=== PATIENT | female | born 1965 | race Caucasian/White ===

== ENCOUNTER 2017-09-11 11:43 | Emergency (ER) | payer MEDICAID ==
[~2017-09-11] VITALS: Ht 170.2 cm; Wt 81.5 kg
[2017-09-11] MEDS ORDERED: MECLIZINE CHEWABLE 25 MG TAB ONE (12:47)
[2017-09-11] MEDS ORDERED: ONDANSETRON 2MG/ML, 2ML ONE (12:48)
[2017-09-11] MEDS ORDERED: MECLIZINE CHEWABLE 25 MG TAB PO ONE (13:00)
[2017-09-11] MEDS ORDERED: ONDANSETRON 2MG/ML, 2ML IVPush ONE (13:00)
[2017-09-11] MEDS ORDERED: SODIUM CHLORIDE 0.9% 1,000ML IVBOLUS ONE ×2 (13:00→14:30)
[2017-09-11] MEDS ORDERED: SODIUM CHLORIDE FLUSH 10ML SYR IVF ONE (13:00)
[2017-09-11 13:18] LABS: BASOPHILS # (AUTO) 0.05 x10^3/uL (0-0.1); BASOPHILS % (AUTO) 1 % (0-1); EOSINOPHILS # (AUTO) 0.11 x10^3/uL (0-0.4); EOSINOPHILS % (AUTO) 1 % (1-7); LYMPHOCYTES % (AUTO) 26 % (22-44); MD NO; MEAN CORPUSCULAR HEMOGLOBIN 28.6 pg (27.0-34.8); MEAN CORPUSCULAR HGB CONC 33.5 g/dL (32.4-35.8); MEAN CORPUSCULAR VOLUME 85.2 fL (80-100); MEAN PLATELET VOLUME 7.2 fL (7.4-10.4); MONOCYTES # (AUTO) 0.36 x10^3/uL (0.2-0.8); MONOCYTES % (AUTO) 4 % (2-9); NEUTROPHILS % (AUTO) 68 % (42-75); PLATELET COUNT 384 x10^3/uL (130-400); RED BLOOD COUNT 4.42 x10^6/uL (3.82-5.3); RED CELL DISTRIBUTION WIDTH 14.6 % (9.6-15.2)
[2017-09-11 13:29] LABS: ALANINE AMINOTRANSFERASE 20 U/L (12-78); ALBUMIN 3.3 g/dL (3.4-5.0); ANION GAP 9 mmol/L (5-15); CALCIUM 9.6 mg/dL (8.5-10.1); CHLORIDE 98 mmol/L (98-107); CREATININE 1.47 mg/dL (0.55-1.02)
[2017-09-11 13:31] LABS: ALKALINE PHOSPHATASE 113 U/L (45-117); BILIRUBIN,TOTAL 0.3 mg/dL (0.2-1.0); TOTAL PROTEIN 7.8 g/dL (6.4-8.2)
[2017-09-11 15:35] LABS: ANION GAP 6 mmol/L (5-15); CALCIUM 8.8 mg/dL (8.5-10.1); CHLORIDE 105 mmol/L (98-107); CREATININE 1.16 mg/dL (0.55-1.02)
[2017-09-11 16:35] VITALS: BP 164/81
== END 2017-09-11 16:41 | disposition home or self-care (01) ==
LOC: ED 15:20
DX: H60.11 Cellulitis of right external ear (principal); L03.313 Cellulitis of chest wall; L03.312 Cellulitis of back [any part except buttock and flank]; E11.65 Type 2 diabetes mellitus with hyperglycemia; Z79.4 Long term (current) use of insulin
CPT/HCPCS: 36415; 80048; 80053; 82040; 82962; 85025; 93005; 96361; 96374; 99285; J2405; J7030

== ENCOUNTER 2017-11-25 12:02 | Emergency (ER) | payer MEDICAID ==
[~2017-11-25] VITALS: Ht 170.2 cm; Wt 84.0 kg
[2017-11-25] MEDS ORDERED: HYDROcodone/APAP 5/325 TABLET ONE (12:24)
[2017-11-25] MEDS ORDERED: HYDROcodone/APAP 5/325 TABLET PO ONE (12:30)
[2017-11-25 13:24] VITALS: BP 96/57
== END 2017-11-25 13:26 | disposition home or self-care (01) ==
LOC: ED 13:20
DX: K02.9 Dental caries, unspecified (principal); E11.9 Type 2 diabetes mellitus without complications; Z79.4 Long term (current) use of insulin; Z88.5 Allergy status to narcotic agent; Z88.8 Allergy status to other drugs, medicaments and biological substances
CPT/HCPCS: 99283

== ENCOUNTER 2018-02-07 12:01 | Emergency (ER) | payer MEDICAID ==
[~2018-02-07] VITALS: Ht 170.2 cm; Wt 88.7 kg
[2018-02-07 12:04] VITALS: BP 103/64
[2018-02-07] MEDS ORDERED: HYDROcodone/APAP 5/325 TABLET PO ONE (13:00)
[2018-02-07] MEDS ORDERED: HYDROcodone/APAP 5/325 TABLET ONE (13:01)
[2018-02-07] MEDS ORDERED: PREG25CA PO (13:05)
[2018-02-07] MEDS ORDERED: DULO20CA45 PO (13:05)
[2018-02-07] MEDS ORDERED: HYDR10TA4 PO (13:05)
== END 2018-02-07 13:23 | disposition home or self-care (01) ==
LOC: ED 13:10
DX: K08.89 Other specified disorders of teeth and supporting structures (principal); E11.9 Type 2 diabetes mellitus without complications
CPT/HCPCS: 99283

== ENCOUNTER 2018-04-07 13:09 | Emergency (ER) | payer MEDICAID ==
[~2018-04-07] VITALS: Ht 170.2 cm; Wt 90.0 kg
[~2018-04-07 13:09] MED LIST: DULO20CA45 PO; HYDR10TA4 PO; PREG25CA PO
[2018-04-07 13:21] VITALS: BP 142/85
[2018-04-07 15:23] LABS: BASOPHILS # (AUTO) 0.06 x10^3/uL (0-0.1); BASOPHILS % (AUTO) 1 % (0-1); EOSINOPHILS # (AUTO) 0.32 x10^3/uL (0-0.4); EOSINOPHILS % (AUTO) 4 % (1-7); LYMPHOCYTES # (AUTO) 2.78 x10^3/uL (1-3.4); LYMPHOCYTES % (AUTO) 32 % (22-44); MD NO; MEAN CORPUSCULAR HEMOGLOBIN 28.6 pg (27.0-34.8); MEAN CORPUSCULAR HGB CONC 33.3 g/dL (32.4-35.8); MEAN CORPUSCULAR VOLUME 86.1 fL (80-100); MEAN PLATELET VOLUME 7.5 fL (7.4-10.4); MONOCYTES # (AUTO) 0.49 x10^3/uL (0.2-0.8); MONOCYTES % (AUTO) 6 % (2-9); NEUTROPHILS # (AUTO) 5.12 x10^3/uL (1.8-6.8); NEUTROPHILS % (AUTO) 58 % (42-75); PLATELET COUNT 334 x10^3/uL (130-400); RED CELL DISTRIBUTION WIDTH 13.6 % (9.6-15.2)
[2018-04-07 15:28] LABS: ALBUMIN 3.7 g/dL (3.4-5.0); ANION GAP 3 mmol/L (5-15); CALCIUM 9.4 mg/dL (8.5-10.1); CHLORIDE 101 mmol/L (98-107)
[2018-04-07 15:32] LABS: ALANINE AMINOTRANSFERASE 35 U/L (12-78); ALKALINE PHOSPHATASE 114 U/L (45-117); BILIRUBIN,TOTAL 0.4 mg/dL (0.2-1.0); CREATININE 1.28 mg/dL (0.55-1.02); TOTAL PROTEIN 7.9 g/dL (6.4-8.2)
[2018-04-07 16:30] LABS: MICROSCOPIC AUTO
[2018-04-07 16:36] LABS: CULTURE INDICATED? NO
== END 2018-04-07 17:30 | disposition home or self-care (01) ==
LOC: ED 17:05
DX: J02.8 Acute pharyngitis due to other specified organisms (principal); B97.89 Other viral agents as the cause of diseases classified elsewhere; H60.93 Unspecified otitis externa, bilateral; E11.65 Type 2 diabetes mellitus with hyperglycemia; Z90.710 Acquired absence of both cervix and uterus
CPT/HCPCS: 36415; 70360; 80053; 81001; 85025; 99285

== ENCOUNTER 2018-04-23 11:49 | Emergency (ER) | payer MEDICAID ==
[~2018-04-23] VITALS: Ht 170.2 cm; Wt 89.5 kg
[2018-04-23] MEDS ORDERED: SODIUM CHLORIDE 0.9% 1,000ML IVBOLUS ONE ×2 (13:00→14:30)
[2018-04-23] MEDS ORDERED: SODIUM CHLORIDE FLUSH 10ML SYR IVF ONE (13:00)
[2018-04-23] MEDS ORDERED: KETOROLAC 60 MG/2 ML IVPush ONE (13:00)
[2018-04-23] MEDS ORDERED: INSU100I13 SQ (13:02)
[2018-04-23] MEDS ORDERED: INSU100C SQ-INSULIN (13:03)
[2018-04-23 13:38] LABS: BASOPHILS # (AUTO) 0.03 x10^3/uL (0-0.1); BASOPHILS % (AUTO) 0 % (0-1); EOSINOPHILS # (AUTO) 0.18 x10^3/uL (0-0.4); EOSINOPHILS % (AUTO) 2 % (1-7); LYMPHOCYTES # (AUTO) 2.65 x10^3/uL (1-3.4); LYMPHOCYTES % (AUTO) 30 % (22-44); MD NO; MEAN CORPUSCULAR HEMOGLOBIN 28.5 pg (27.0-34.8); MEAN CORPUSCULAR HGB CONC 33.3 g/dL (32.4-35.8); MEAN CORPUSCULAR VOLUME 85.8 fL (80-100); MEAN PLATELET VOLUME 7.6 fL (7.4-10.4); MONOCYTES # (AUTO) 0.48 x10^3/uL (0.2-0.8); MONOCYTES % (AUTO) 5 % (2-9); NEUTROPHILS # (AUTO) 5.63 x10^3/uL (1.8-6.8); NEUTROPHILS % (AUTO) 63 % (42-75); PLATELET COUNT 371 x10^3/uL (130-400); RED BLOOD COUNT 4.82 x10^6/uL (3.82-5.3); RED CELL DISTRIBUTION WIDTH 13.4 % (9.6-15.2)
[2018-04-23 13:49] LABS: ALBUMIN 3.5 g/dL (3.4-5.0); ANION GAP 9 mmol/L (5-15); CALCIUM 9.4 mg/dL (8.5-10.1); CHLORIDE 104 mmol/L (98-107)
[2018-04-23 13:54] LABS: ALANINE AMINOTRANSFERASE 28 U/L (12-78); ALKALINE PHOSPHATASE 122 U/L (45-117); BILIRUBIN,TOTAL 0.3 mg/dL (0.2-1.0); TOTAL PROTEIN 7.9 g/dL (6.4-8.2)
[2018-04-23 13:58] LABS: TROPONIN I < 0.015 ng/mL (0.000-0.045)
[2018-04-23 14:11] LABS: ACETONE, SERUM Negative (Negative)
[2018-04-23] MEDS ORDERED: DULOXETINE (15:50)
[2018-04-23] MEDS ORDERED: NORTRIPTYLINE (15:51)
[2018-04-23] MEDS ORDERED: LIPITOR (15:52)
[2018-04-23] MEDS ORDERED: BACLOFEN (15:52)
[2018-04-23 16:53] VITALS: BP 112/75
[2018-04-23 17:30] LABS: MICROSCOPIC INDICATED
[2018-04-23 17:31] LABS: CULTURE INDICATED? YES
[2018-04-23 18:30] LABS: AMPHETAMINE SCREEN, URINE Negative (Negative); BARBITURATE SCREEN, URINE Negative (Negative); BENZODIAZEPINE SCREEN, URINE Negative (Negative); CANNABINOID SCREEN, URINE Negative (Negative); COCAINE SCREEN, URINE Negative (Negative); METHADONE SCREEN, URINE Negative (Negative); OPIATE SCREEN, URINE Negative (Negative)
== END 2018-04-23 20:08 | disposition home or self-care (01) ==
LOC: ED 12:45
DX: E11.649 Type 2 diabetes mellitus with hypoglycemia without coma (principal); N18.3 Chronic kidney disease, stage 3 (moderate); K08.89 Other specified disorders of teeth and supporting structures; I12.9 Hypertensive chronic kidney disease with stage 1 through stage 4 chronic kidney disease, or unspecified chronic kidney disease; E11.22 Type 2 diabetes mellitus with diabetic chronic kidney disease; Z79.4 Long term (current) use of insulin; Z90.710 Acquired absence of both cervix and uterus; Z88.5 Allergy status to narcotic agent; Z88.8 Allergy status to other drugs, medicaments and biological substances; R05 Cough; R42 Dizziness and giddiness; R21 Rash and other nonspecific skin eruption; Z79.899 Other long term (current) drug therapy
CPT/HCPCS: 36415; 71045; 80053; 80307; 81001; 82010; 82962; 84484; 85025; 87086; 93005; 96360; 96361; 99285; J7030

== ENCOUNTER 2018-06-05 16:17 | Inpatient (IN) | payer MEDICAID, OTHER ==
[~2018-06-05] VITALS: Ht 170.2 cm; Wt 94.7 kg
[~2018-06-05 16:17] MED LIST changes: +BACLOFEN PO; +DULOXETINE; +INSU100C SQ-INSULIN; +INSU100I13 SQ; +LIPITOR PO; +NORTRIPTYLINE PO
[2018-06-05] MEDS ORDERED: PIPERACILLIN/TAZO/PMX 3.375GM 50 ML ONE (16:54)
[2018-06-05] MEDS ORDERED: SODIUM CHLORIDE 0.9% 1,000ML IVBOLUS ONE (17:00)
[2018-06-05] MEDS ORDERED: SODIUM CHLORIDE FLUSH 10ML SYR IVF ONE (17:00)
[2018-06-05] MEDS ORDERED: PIPERACILLIN/TAZO/PMX 3.375GM 50 ML IVPB ONE (17:00)
[2018-06-05 17:15] LABS: BASOPHILS # (AUTO) 0.02 x10^3/uL (0-0.1); BASOPHILS % (AUTO) 0 % (0-1); EOSINOPHILS # (AUTO) 0.03 x10^3/uL (0-0.4); EOSINOPHILS % (AUTO) 0 % (1-7); LYMPHOCYTES # (AUTO) 1.47 x10^3/uL (1-3.4); LYMPHOCYTES % (AUTO) 17 % (22-44); MD NO; MEAN CORPUSCULAR HEMOGLOBIN 28.2 pg (27.0-34.8); MEAN CORPUSCULAR HGB CONC 33.3 g/dL (32.4-35.8); MEAN CORPUSCULAR VOLUME 84.6 fL (80-100); MEAN PLATELET VOLUME 7.9 fL (7.4-10.4); MONOCYTES # (AUTO) 1.01 x10^3/uL (0.2-0.8); MONOCYTES % (AUTO) 11 % (2-9); NEUTROPHILS # (AUTO) 6.34 x10^3/uL (1.8-6.8); NEUTROPHILS % (AUTO) 71 % (42-75); PLATELET COUNT 267 x10^3/uL (130-400); RED BLOOD COUNT 4.55 x10^6/uL (3.82-5.3); RED CELL DISTRIBUTION WIDTH 14.1 % (9.6-15.2)
[2018-06-05 17:27] LABS: ALANINE AMINOTRANSFERASE 23 U/L (12-78); ALBUMIN 2.8 g/dL (3.4-5.0); ANION GAP 12 mmol/L (5-15); CALCIUM 9.1 mg/dL (8.5-10.1); CHLORIDE 91 mmol/L (98-107); CREATININE 2.04 mg/dL (0.55-1.02)
[2018-06-05 17:29] LABS: ALKALINE PHOSPHATASE 117 U/L (45-117); BILIRUBIN,TOTAL 0.6 mg/dL (0.2-1.0); TOTAL PROTEIN 8.3 g/dL (6.4-8.2)
[2018-06-05 17:50] LABS: PROTHROMBIN TIME 10.3 Seconds (9.6-11.5)
[2018-06-05 18:57] LABS: CULTURE INDICATED? YES; MICROSCOPIC INDICATED
[2018-06-05] MEDS ORDERED: SODIUM CHLORIDE FLUSH 10ML SYR IVF PRN (19:00)
[2018-06-05] MEDS ORDERED: HYDR10TA4 PO (19:13)
[2018-06-05] MEDS ORDERED: MULT-257 PO (19:15)
[2018-06-05] MEDS ORDERED: LORA10TA72 PO (19:15)
[2018-06-05] MEDS ORDERED: BRIM5DRO2 EACHEYE (19:17)
[2018-06-05] MEDS ORDERED: PRED5DRO20 LEFTEYE (19:20)
[2018-06-05] MEDS ORDERED: ONDANSETRON ODT 4 MG PO PRN (20:00)
[2018-06-05] MEDS ORDERED: PHARMACY MAY ADJ FOR RENAL FX MC PRN (20:00)
[2018-06-05 20:35] VITALS: BP 100/61
[2018-06-05] MEDS: SODIUM CHLORIDE 0.9% 1,000 ML IV SCH (20:44)
[2018-06-05] MEDS ORDERED: GLUCAGON 1 MG IM PRN (21:00)
[2018-06-05] MEDS ORDERED: DEXTROSE 4 GM TAB.CHEW PO PRN (21:00)
[2018-06-05] MEDS: SODIUM CHLORIDE FLUSH 10ML SYR IVF SCH (21:00)
[2018-06-05] MEDS ORDERED: DEXTROSE 50%, 50ML SYRINGE IVPush PRN (21:00)
[2018-06-05] MEDS ORDERED: LORATADINE 10 MG TABLET PO SCH (21:00)
[2018-06-05] MEDS ORDERED: ATORVASTATIN 20 MG TABLET PO SCH (21:00)
[2018-06-05] MEDS: hydrOXyzine 10MG TABLET PO SCH (21:38)
[2018-06-05] MEDS: NORTRIPTYLINE 10 MG CAPSULE PO SCH (21:38)
[2018-06-05] MEDS: BACLOFEN 10 MG TABLET PO SCH (21:39)
[2018-06-05 22:06] VITALS: BP 100/61
[2018-06-05] MEDS: HEPARIN 5,000 UNITS/ML, 1ML SQ SCH (22:30)
[2018-06-05] MEDS: PIPERACILLIN/TAZO/PMX 3.375GM 50 ML IV SCH (23:11)
[2018-06-05] MEDS: INSULIN LISPRO 100 UNITS/ML, PEN SQ-INSULIN SCH (23:11)
[2018-06-05] MEDS: INSULIN GLARGINE 100 UNITS/ML, PEN SQ-INSULIN SCH (23:12)
[2018-06-06 00:04] VITALS: BP 89/54
[2018-06-06 02:22] VITALS: BP 112/73
[2018-06-06] MEDS ORDERED: DIPHENHYDRAMINE 25 MG CAPSULE PO ONE (03:00)
[2018-06-06 05:30] VITALS: BP 119/70
[2018-06-06] MEDS: SODIUM CHLORIDE 0.9% 1,000 ML IV SCH ×2 (05:52→20:21)
[2018-06-06] MEDS: PIPERACILLIN/TAZO/PMX 3.375GM 50 ML IV SCH ×2 (05:52→10:52)
[2018-06-06 05:56] LABS: BASOPHILS # (AUTO) 0.03 x10^3/uL (0-0.1); BASOPHILS % (AUTO) 0 % (0-1); EOSINOPHILS # (AUTO) 0.09 x10^3/uL (0-0.4); EOSINOPHILS % (AUTO) 1 % (1-7); LYMPHOCYTES # (AUTO) 1.57 x10^3/uL (1-3.4); LYMPHOCYTES % (AUTO) 21 % (22-44); MD NO; MEAN CORPUSCULAR HEMOGLOBIN 27.9 pg (27.0-34.8); MEAN CORPUSCULAR HGB CONC 33.2 g/dL (32.4-35.8); MEAN CORPUSCULAR VOLUME 84.1 fL (80-100); MEAN PLATELET VOLUME 7.8 fL (7.4-10.4); MONOCYTES % (AUTO) 17 % (2-9); NEUTROPHILS # (AUTO) 4.55 x10^3/uL (1.8-6.8); NEUTROPHILS % (AUTO) 60 % (42-75); PLATELET COUNT 270 x10^3/uL (130-400); RED BLOOD COUNT 4.03 x10^6/uL (3.82-5.3)
[2018-06-06 06:03] LABS: ANION GAP 7 mmol/L (5-15); CHLORIDE 100 mmol/L (98-107); CREATININE 1.85 mg/dL (0.55-1.02)
[2018-06-06] MEDS: HEPARIN 5,000 UNITS/ML, 1ML SQ SCH ×3 (06:18→22:26)
[2018-06-06] MEDS: INSULIN LISPRO 100 UNITS/ML, PEN SQ-INSULIN SCH ×4 (08:17→21:33)
[2018-06-06] MEDS: INSULIN GLARGINE 100 UNITS/ML, PEN SQ-INSULIN SCH ×2 (08:18→21:38)
[2018-06-06] MEDS: hydrOXyzine 10MG TABLET PO SCH ×2 (08:19→20:22)
[2018-06-06] MEDS: BACLOFEN 10 MG TABLET PO SCH ×2 (08:19→20:21)
[2018-06-06] MEDS: MULTIVITAMIN 1 TABLET PO SCH (08:20)
[2018-06-06] MEDS: SODIUM CHLORIDE FLUSH 10ML SYR IVF SCH ×2 (08:24→20:23)
[2018-06-06 10:00] VITALS: BP 91/58
[2018-06-06] MEDS: TIMOLOL OPHTH 0.5%, 5ML EACHEYE SCH (10:42)
[2018-06-06] MEDS: BRIMONIDINE TARTRATE OPHTH 0.15%, 5ML EACHEYE SCH (10:42)
[2018-06-06 13:25] VITALS: BP 120/78
[2018-06-06] MEDS ORDERED: PHARMACY MAY ADJ FOR RENAL FX MC PRN (13:30)
[2018-06-06] MEDS ORDERED: DAPTOMYCIN 530 MG in SODIUM CHLORIDE 0.9% 100 ML IVPB SCH (13:30)
[2018-06-06 15:17] LABS: HCT (SEDRATE) 34.2 % (34.6-47.8)
[2018-06-06] MEDS: CEFTAROLINE 600 MG in SODIUM CHLORIDE 0.9% 100 ML IV SCH (15:49)
[2018-06-06 16:17] LABS: HEMOGLOBIN A1C 13.1 % (4.2-6.3)
[2018-06-06] MEDS: ALBUTEROL SULFATE 2.5 MG/3 ML NPPB SCH (19:32)
[2018-06-06] MEDS: NORTRIPTYLINE 10 MG CAPSULE PO SCH (20:22)
[2018-06-06] MEDS: LORATADINE 10 MG TABLET PO SCH (20:22)
[2018-06-06] MEDS: ATORVASTATIN 20 MG TABLET PO SCH (20:22)
[2018-06-06 20:31] VITALS: BP 125/66
[2018-06-06] MEDS ORDERED: INSULIN GLARGINE 100 UNITS/ML, PEN SQ-INSULIN SCH (21:00)
[2018-06-07] MEDS: CEFTAROLINE 600 MG in SODIUM CHLORIDE 0.9% 100 ML IV SCH ×2 (03:14→15:22)
[2018-06-07 03:20] VITALS: BP 142/62
[2018-06-07 05:57] LABS: BASOPHILS # (AUTO) 0.02 x10^3/uL (0-0.1); BASOPHILS % (AUTO) 0 % (0-1); EOSINOPHILS # (AUTO) 0.13 x10^3/uL (0-0.4); EOSINOPHILS % (AUTO) 2 % (1-7); LYMPHOCYTES # (AUTO) 2.31 x10^3/uL (1-3.4); LYMPHOCYTES % (AUTO) 27 % (22-44); MD NO; MEAN CORPUSCULAR HEMOGLOBIN 27.5 pg (27.0-34.8); MEAN CORPUSCULAR HGB CONC 32.9 g/dL (32.4-35.8); MEAN CORPUSCULAR VOLUME 83.8 fL (80-100); MEAN PLATELET VOLUME 7.9 fL (7.4-10.4); MONOCYTES # (AUTO) 0.76 x10^3/uL (0.2-0.8); MONOCYTES % (AUTO) 9 % (2-9); NEUTROPHILS # (AUTO) 5.33 x10^3/uL (1.8-6.8); NEUTROPHILS % (AUTO) 62 % (42-75); PLATELET COUNT 319 x10^3/uL (130-400); RED BLOOD COUNT 3.87 x10^6/uL (3.82-5.3); RED CELL DISTRIBUTION WIDTH 13.9 % (9.6-15.2)
[2018-06-07 06:00] LABS: CALCIUM 7.9 mg/dL (8.5-10.1); CHLORIDE 106 mmol/L (98-107)
[2018-06-07 06:04] LABS: ANION GAP 7 mmol/L (5-15); CREATININE 1.12 mg/dL (0.55-1.02)
[2018-06-07] MEDS: HEPARIN 5,000 UNITS/ML, 1ML SQ SCH ×3 (06:15→23:19)
[2018-06-07] MEDS: SODIUM CHLORIDE 0.9% 1,000 ML IV SCH ×2 (06:15→17:00)
[2018-06-07] MEDS: ALBUTEROL SULFATE 2.5 MG/3 ML NPPB SCH ×2 (07:50→18:48)
[2018-06-07] MEDS: INSULIN GLARGINE 100 UNITS/ML, PEN SQ-INSULIN SCH ×2 (08:44→21:55)
[2018-06-07] MEDS: TIMOLOL OPHTH 0.5%, 5ML EACHEYE SCH (08:45)
[2018-06-07] MEDS: INSULIN LISPRO 100 UNITS/ML, PEN SQ-INSULIN SCH ×4 (08:45→21:11)
[2018-06-07] MEDS: BRIMONIDINE TARTRATE OPHTH 0.15%, 5ML EACHEYE SCH (08:46)
[2018-06-07] MEDS: LORATADINE 10 MG TABLET PO SCH ×2 (08:46→21:09)
[2018-06-07] MEDS: MULTIVITAMIN 1 TABLET PO SCH (08:46)
[2018-06-07] MEDS: SODIUM CHLORIDE FLUSH 10ML SYR IVF SCH ×2 (08:47→21:55)
[2018-06-07] MEDS: BACLOFEN 10 MG TABLET PO SCH ×2 (08:47→21:10)
[2018-06-07] MEDS: hydrOXyzine 10MG TABLET PO SCH ×2 (08:47→21:09)
[2018-06-07] MEDS ORDERED: INSULIN GLARGINE 100 UNITS/ML, PEN SQ-INSULIN SCH (09:00)
[2018-06-07 09:59] VITALS: BP 149/84
[2018-06-07 13:11] VITALS: BP 142/64
[2018-06-07 19:58] VITALS: BP 162/81
[2018-06-07] MEDS: ATORVASTATIN 20 MG TABLET PO SCH (21:08)
[2018-06-07] MEDS: NORTRIPTYLINE 10 MG CAPSULE PO SCH (21:10)
[2018-06-08 01:24] VITALS: BP 178/82
[2018-06-08 01:56] VITALS: BP 174/83
[2018-06-08] MEDS: hydrALAzine 20 MG/ML, 1ML IV PRN (01:57)
[2018-06-08 03:00] VITALS: BP 164/81
[2018-06-08] MEDS: CEFTAROLINE 600 MG in SODIUM CHLORIDE 0.9% 100 ML IV SCH (03:02)
[2018-06-08 06:41] VITALS: BP 126/67
[2018-06-08] MEDS: ALBUTEROL SULFATE 2.5 MG/3 ML NPPB SCH ×2 (08:05→19:18)
[2018-06-08] MEDS: INSULIN LISPRO 100 UNITS/ML, PEN SQ-INSULIN SCH ×4 (08:57→20:46)
[2018-06-08] MEDS: BRIMONIDINE TARTRATE OPHTH 0.15%, 5ML EACHEYE SCH (08:57)
[2018-06-08] MEDS: TIMOLOL OPHTH 0.5%, 5ML EACHEYE SCH (08:57)
[2018-06-08] MEDS: HEPARIN 5,000 UNITS/ML, 1ML SQ SCH ×2 (08:57→16:32)
[2018-06-08] MEDS: INSULIN GLARGINE 100 UNITS/ML, PEN SQ-INSULIN SCH ×2 (08:58→20:47)
[2018-06-08] MEDS: SODIUM CHLORIDE FLUSH 10ML SYR IVF SCH ×2 (08:58→20:48)
[2018-06-08] MEDS: hydrOXyzine 10MG TABLET PO SCH ×2 (08:58→20:44)
[2018-06-08] MEDS: MULTIVITAMIN 1 TABLET PO SCH (08:58)
[2018-06-08] MEDS: LORATADINE 10 MG TABLET PO SCH ×2 (08:58→20:43)
[2018-06-08] MEDS: BACLOFEN 10 MG TABLET PO SCH ×2 (08:58→20:45)
[2018-06-08 12:12] VITALS: BP 119/69
[2018-06-08] MEDS ORDERED: SODIUM CHLORIDE 0.9% 500 ML IV SCH (13:00)
[2018-06-08 13:01] LABS: MEAN CORPUSCULAR HGB CONC 33.2 g/dL (32.4-35.8); MEAN CORPUSCULAR VOLUME 84.1 fL (80-100); MEAN PLATELET VOLUME 7.6 fL (7.4-10.4); PLATELET COUNT 344 x10^3/uL (130-400); RED BLOOD COUNT 3.57 x10^6/uL (3.82-5.3); RED CELL DISTRIBUTION WIDTH 14.3 % (9.6-15.2)
[2018-06-08 13:02] LABS: BASOPHILS # (AUTO) 0.04 x10^3/uL (0-0.1); BASOPHILS % (AUTO) 1 % (0-1); EOSINOPHILS # (AUTO) 0.14 x10^3/uL (0-0.4); EOSINOPHILS % (AUTO) 2 % (1-7); LYMPHOCYTES # (AUTO) 2.04 x10^3/uL (1-3.4); LYMPHOCYTES % (AUTO) 24 % (22-44); MD NO; MONOCYTES # (AUTO) 0.42 x10^3/uL (0.2-0.8); MONOCYTES % (AUTO) 5 % (2-9); NEUTROPHILS # (AUTO) 5.94 x10^3/uL (1.8-6.8); NEUTROPHILS % (AUTO) 69 % (42-75)
[2018-06-08 13:03] LABS: ANION GAP 6 mmol/L (5-15); CALCIUM 8.1 mg/dL (8.5-10.1); CHLORIDE 108 mmol/L (98-107); CREATININE 0.93 mg/dL (0.55-1.02)
[2018-06-08] MEDS: CLINDAMYCIN PMX 600MG/50ML 50 ML IV SCH ×2 (16:30→20:44)
[2018-06-08] MEDS: predniSOLONE OPHTH SUSP 1%, 5ML LEFTEYE PRN (16:31)
[2018-06-08 19:39] VITALS: BP 147/80
[2018-06-08] MEDS: ATORVASTATIN 20 MG TABLET PO SCH (20:43)
[2018-06-08] MEDS: NORTRIPTYLINE 10 MG CAPSULE PO SCH (20:45)
[2018-06-09] MEDS: HEPARIN 5,000 UNITS/ML, 1ML SQ SCH ×4 (00:16→23:44)
[2018-06-09 03:21] VITALS: BP 150/77
[2018-06-09 05:08] LABS: BASOPHILS # (AUTO) 0.02 x10^3/uL (0-0.1); BASOPHILS % (AUTO) 0 % (0-1); EOSINOPHILS # (AUTO) 0.12 x10^3/uL (0-0.4); EOSINOPHILS % (AUTO) 2 % (1-7); LYMPHOCYTES # (AUTO) 1.67 x10^3/uL (1-3.4); LYMPHOCYTES % (AUTO) 20 % (22-44); MD NO; MEAN CORPUSCULAR HGB CONC 33.3 g/dL (32.4-35.8); MEAN CORPUSCULAR VOLUME 84.1 fL (80-100); MEAN PLATELET VOLUME 7.3 fL (7.4-10.4); MONOCYTES # (AUTO) 0.54 x10^3/uL (0.2-0.8); MONOCYTES % (AUTO) 7 % (2-9); NEUTROPHILS % (AUTO) 72 % (42-75); PLATELET COUNT 431 x10^3/uL (130-400); RED BLOOD COUNT 3.91 x10^6/uL (3.82-5.3); RED CELL DISTRIBUTION WIDTH 14.1 % (9.6-15.2)
[2018-06-09 05:15] LABS: ALBUMIN 2.4 g/dL (3.4-5.0); ANION GAP 11 mmol/L (5-15); CALCIUM 8.5 mg/dL (8.5-10.1); CHLORIDE 103 mmol/L (98-107)
[2018-06-09 05:18] LABS: ALANINE AMINOTRANSFERASE 19 U/L (12-78); ALKALINE PHOSPHATASE 103 U/L (45-117); BILIRUBIN,TOTAL 0.2 mg/dL (0.2-1.0); CREATININE 0.98 mg/dL (0.55-1.02); TOTAL PROTEIN 7.2 g/dL (6.4-8.2)
[2018-06-09] MEDS: CLINDAMYCIN PMX 600MG/50ML 50 ML IV SCH (05:20)
[2018-06-09 06:35] VITALS: BP 179/73
[2018-06-09 06:50] VITALS: BP 174/105
[2018-06-09] MEDS: INSULIN LISPRO 100 UNITS/ML, PEN SQ-INSULIN SCH ×4 (07:49→20:20)
[2018-06-09 08:18] VITALS: BP 176/94
[2018-06-09] MEDS: hydrALAzine 20 MG/ML, 1ML IV PRN (08:19)
[2018-06-09] MEDS: MULTIVITAMIN 1 TABLET PO SCH (08:20)
[2018-06-09] MEDS: LORATADINE 10 MG TABLET PO SCH ×2 (08:21→20:18)
[2018-06-09] MEDS: hydrOXyzine 10MG TABLET PO SCH ×2 (08:23→20:19)
[2018-06-09] MEDS: TIMOLOL OPHTH 0.5%, 5ML EACHEYE SCH (08:23)
[2018-06-09] MEDS: predniSOLONE OPHTH SUSP 1%, 5ML LEFTEYE PRN (08:24)
[2018-06-09] MEDS: BRIMONIDINE TARTRATE OPHTH 0.15%, 5ML EACHEYE SCH (08:24)
[2018-06-09] MEDS: BACLOFEN 10 MG TABLET PO SCH ×2 (08:25→20:19)
[2018-06-09] MEDS: SODIUM CHLORIDE FLUSH 10ML SYR IVF SCH ×2 (08:26→20:21)
[2018-06-09] MEDS: INSULIN GLARGINE 100 UNITS/ML, PEN SQ-INSULIN SCH ×2 (09:58→20:20)
[2018-06-09] MEDS: ALBUTEROL SULFATE 2.5 MG/3 ML NPPB SCH ×2 (11:04→20:30)
[2018-06-09 12:22] VITALS: BP 102/66
[2018-06-09] MEDS: CEFAZOLIN PMX 1GM/50ML 50 ML IV SCH ×2 (14:15→20:19)
[2018-06-09 20:15] VITALS: BP 125/72
[2018-06-09] MEDS: ATORVASTATIN 20 MG TABLET PO SCH (20:19)
[2018-06-09] MEDS: NORTRIPTYLINE 10 MG CAPSULE PO SCH (20:20)
[2018-06-10 02:00] VITALS: BP 152/90
[2018-06-10 05:02] LABS: BASOPHILS # (AUTO) 0.07 x10^3/uL (0-0.1); BASOPHILS % (AUTO) 1 % (0-1); EOSINOPHILS # (AUTO) 0.18 x10^3/uL (0-0.4); EOSINOPHILS % (AUTO) 2 % (1-7); LYMPHOCYTES # (AUTO) 2.78 x10^3/uL (1-3.4); LYMPHOCYTES % (AUTO) 32 % (22-44); MD NO; MEAN CORPUSCULAR HEMOGLOBIN 27.5 pg (27.0-34.8); MEAN CORPUSCULAR VOLUME 83.1 fL (80-100); MEAN PLATELET VOLUME 6.8 fL (7.4-10.4); MONOCYTES # (AUTO) 0.52 x10^3/uL (0.2-0.8); MONOCYTES % (AUTO) 6 % (2-9); NEUTROPHILS # (AUTO) 5.14 x10^3/uL (1.8-6.8); NEUTROPHILS % (AUTO) 59 % (42-75); PLATELET COUNT 547 x10^3/uL (130-400); RED BLOOD COUNT 4.17 x10^6/uL (3.82-5.3); RED CELL DISTRIBUTION WIDTH 14.1 % (9.6-15.2)
[2018-06-10] MEDS: CEFAZOLIN PMX 1GM/50ML 50 ML IV SCH ×3 (05:19→20:37)
[2018-06-10 06:33] VITALS: BP 172/92
[2018-06-10] MEDS: INSULIN LISPRO 100 UNITS/ML, PEN SQ-INSULIN SCH ×4 (07:00→20:32)
[2018-06-10] MEDS: ALBUTEROL SULFATE 2.5 MG/3 ML NPPB SCH ×2 (08:00→20:58)
[2018-06-10] MEDS: HEPARIN 5,000 UNITS/ML, 1ML SQ SCH ×2 (08:00→16:00)
[2018-06-10] MEDS: BRIMONIDINE TARTRATE OPHTH 0.15%, 5ML EACHEYE SCH (09:35)
[2018-06-10] MEDS: TIMOLOL OPHTH 0.5%, 5ML EACHEYE SCH (09:35)
[2018-06-10] MEDS: SODIUM CHLORIDE FLUSH 10ML SYR IVF SCH ×2 (09:36→20:33)
[2018-06-10] MEDS: MULTIVITAMIN 1 TABLET PO SCH (09:37)
[2018-06-10] MEDS: INSULIN GLARGINE 100 UNITS/ML, PEN SQ-INSULIN SCH ×2 (09:37→20:32)
[2018-06-10] MEDS: hydrOXyzine 10MG TABLET PO SCH ×2 (09:37→20:32)
[2018-06-10] MEDS: LORATADINE 10 MG TABLET PO SCH ×2 (09:37→20:30)
[2018-06-10] MEDS: BACLOFEN 10 MG TABLET PO SCH ×2 (09:38→20:31)
[2018-06-10 12:13] VITALS: BP 161/88
[2018-06-10] MEDS ORDERED: FENTANYL PF 250 MCG/5ML ONE (12:32)
[2018-06-10] MEDS ORDERED: MIDAZOLAM 1 MG/ML, 2ML ONE (12:32)
[2018-06-10] MEDS ORDERED: PROPOFOL 10 MG/ML, 20ML ONE (12:34)
[2018-06-10] MEDS ORDERED: CEFAZOLIN 1,000 MG ONE ×2 (12:36)
[2018-06-10] MEDS ORDERED: SODIUM CHLORIDE 0.9% PF 10ML ONE (12:36)
[2018-06-10] MEDS ORDERED: BUPIVACAINE/PF 0.5% ONE (13:16)
[2018-06-10] MEDS ORDERED: hydrALAzine 20 MG/ML, 1ML IV PRN (13:30)
[2018-06-10] MEDS ORDERED: ALBUTEROL SULFATE 2.5 MG/3 ML NPPB PRN (13:30)
[2018-06-10] MEDS ORDERED: FENTANYL PF 100 MCG/2ML IV PRN (13:30)
[2018-06-10] MEDS ORDERED: OXYcodone 5 MG/5 ML ORAL.SOL UDC PO PRN (13:30)
[2018-06-10] MEDS ORDERED: ONDANSETRON 2MG/ML, 2ML IV PRN (13:30)
[2018-06-10] MEDS ORDERED: ONDANSETRON ODT 8 MG PO PRN (13:30)
[2018-06-10] MEDS ORDERED: PROMETHAZINE 25 MG/ML, 1ML IV PRN (13:30)
[2018-06-10] MEDS ORDERED: PROMETHAZINE 25 MG/ML, 1ML IM PRN ×2 (13:30)
[2018-06-10] MEDS ORDERED: HYDROmorphone 1 MG/ML, 1ML IV PRN (13:30)
[2018-06-10] MEDS ORDERED: LABETALOL 5MG/ML, 20ML IV PRN (13:30)
[2018-06-10 19:57] VITALS: BP 154/72
[2018-06-10] MEDS: ATORVASTATIN 20 MG TABLET PO SCH (20:30)
[2018-06-10] MEDS: NORTRIPTYLINE 10 MG CAPSULE PO SCH (20:32)
[2018-06-10] MEDS: HYDROcodone/APAP 10/325 MG TABLET PO PRN (22:40)
[2018-06-11 02:16] VITALS: BP 135/79
[2018-06-11] MEDS: CEFAZOLIN PMX 1GM/50ML 50 ML IV SCH ×3 (05:24→22:13)
[2018-06-11 06:55] VITALS: BP 159/86
[2018-06-11] MEDS: HEPARIN 5,000 UNITS/ML, 1ML SQ SCH ×3 (08:00→16:00)
[2018-06-11] MEDS: BRIMONIDINE TARTRATE OPHTH 0.15%, 5ML EACHEYE SCH (08:42)
[2018-06-11] MEDS: INSULIN LISPRO 100 UNITS/ML, PEN SQ-INSULIN SCH ×4 (08:42→22:16)
[2018-06-11] MEDS: TIMOLOL OPHTH 0.5%, 5ML EACHEYE SCH (08:42)
[2018-06-11] MEDS: INSULIN GLARGINE 100 UNITS/ML, PEN SQ-INSULIN SCH ×2 (08:43→22:17)
[2018-06-11] MEDS: BACLOFEN 10 MG TABLET PO SCH ×2 (08:43→22:15)
[2018-06-11] MEDS: hydrOXyzine 10MG TABLET PO SCH ×2 (08:44→22:15)
[2018-06-11] MEDS: HYDROcodone/APAP 10/325 MG TABLET PO PRN ×2 (08:44→16:29)
[2018-06-11] MEDS: MULTIVITAMIN 1 TABLET PO SCH (08:44)
[2018-06-11] MEDS: SODIUM CHLORIDE FLUSH 10ML SYR IVF SCH ×2 (08:45→22:16)
[2018-06-11] MEDS: LORATADINE 10 MG TABLET PO SCH ×2 (08:45→22:15)
[2018-06-11] MEDS: ALBUTEROL SULFATE 2.5 MG/3 ML NPPB SCH ×2 (09:25→19:04)
[2018-06-11 12:09] VITALS: BP 123/72
[2018-06-11] MEDS: LACTOBACILLUS CHEW TABLET PO SCH ×2 (16:29→22:14)
[2018-06-11] MEDS ORDERED: ALUMINUM/MAG/SIMETHICONE 30 ML UDC PO PRN (19:00)
[2018-06-11 20:10] VITALS: BP 135/76
[2018-06-11] MEDS: NORTRIPTYLINE 10 MG CAPSULE PO SCH (22:15)
[2018-06-11] MEDS: ATORVASTATIN 20 MG TABLET PO SCH (22:15)
[2018-06-11 23:59] VITALS: BP 147/80
[2018-06-12] MEDS: HYDROcodone/APAP 10/325 MG TABLET PO PRN ×2 (05:25→20:29)
[2018-06-12] MEDS: CEFAZOLIN PMX 1GM/50ML 50 ML IV SCH ×3 (05:25→20:28)
[2018-06-12] MEDS: ALBUTEROL SULFATE 2.5 MG/3 ML NPPB SCH ×2 (07:35→19:24)
[2018-06-12] MEDS: HEPARIN 5,000 UNITS/ML, 1ML SQ SCH ×4 (08:00→15:59)
[2018-06-12] MEDS: SODIUM CHLORIDE FLUSH 10ML SYR IVF SCH ×2 (09:00→20:29)
[2018-06-12] MEDS: LACTOBACILLUS CHEW TABLET PO SCH ×3 (09:24→20:29)
[2018-06-12] MEDS: BACLOFEN 10 MG TABLET PO SCH ×2 (09:24→20:30)
[2018-06-12] MEDS: MULTIVITAMIN 1 TABLET PO SCH (09:24)
[2018-06-12] MEDS: LORATADINE 10 MG TABLET PO SCH ×2 (09:24→20:30)
[2018-06-12] MEDS: BRIMONIDINE TARTRATE OPHTH 0.15%, 5ML EACHEYE SCH (09:25)
[2018-06-12] MEDS: TIMOLOL OPHTH 0.5%, 5ML EACHEYE SCH (09:25)
[2018-06-12] MEDS: hydrOXyzine 10MG TABLET PO SCH ×2 (09:25→20:30)
[2018-06-12] MEDS: INSULIN LISPRO 100 UNITS/ML, PEN SQ-INSULIN SCH ×4 (09:26→20:32)
[2018-06-12] MEDS: INSULIN GLARGINE 100 UNITS/ML, PEN SQ-INSULIN SCH ×2 (09:26→20:50)
[2018-06-12 09:41] VITALS: BP 129/76
[2018-06-12 16:00] VITALS: BP 161/81
[2018-06-12 18:52] VITALS: BP 127/70
[2018-06-12] MEDS: ATORVASTATIN 20 MG TABLET PO SCH (20:30)
[2018-06-12] MEDS: NORTRIPTYLINE 10 MG CAPSULE PO SCH (20:31)
[2018-06-12] MEDS: DOCUSATE 100 MG CAPSULE PO PRN (20:49)
[2018-06-13 00:54] VITALS: BP 150/80
[2018-06-13] MEDS: CEFAZOLIN PMX 1GM/50ML 50 ML IV SCH ×3 (05:59→21:42)
[2018-06-13 07:45] VITALS: BP 155/88
[2018-06-13] MEDS: INSULIN LISPRO 100 UNITS/ML, PEN SQ-INSULIN SCH ×4 (08:35→21:44)
[2018-06-13] MEDS: INSULIN GLARGINE 100 UNITS/ML, PEN SQ-INSULIN SCH ×2 (08:35→21:45)
[2018-06-13] MEDS: TIMOLOL OPHTH 0.5%, 5ML EACHEYE SCH (08:36)
[2018-06-13] MEDS: BRIMONIDINE TARTRATE OPHTH 0.15%, 5ML EACHEYE SCH (08:36)
[2018-06-13] MEDS: predniSOLONE OPHTH SUSP 1%, 5ML LEFTEYE PRN (08:36)
[2018-06-13] MEDS: MULTIVITAMIN 1 TABLET PO SCH (08:37)
[2018-06-13] MEDS: hydrOXyzine 10MG TABLET PO SCH ×2 (08:37→21:42)
[2018-06-13] MEDS: LACTOBACILLUS CHEW TABLET PO SCH ×3 (08:37→21:43)
[2018-06-13] MEDS: BACLOFEN 10 MG TABLET PO SCH ×2 (08:37→21:43)
[2018-06-13] MEDS: LORATADINE 10 MG TABLET PO SCH ×2 (08:37→21:43)
[2018-06-13] MEDS: HEPARIN 5,000 UNITS/ML, 1ML SQ SCH ×3 (08:37→17:00)
[2018-06-13] MEDS: HYDROcodone/APAP 10/325 MG TABLET PO PRN ×2 (08:38→17:07)
[2018-06-13] MEDS: SODIUM CHLORIDE FLUSH 10ML SYR IVF SCH ×2 (08:40→21:00)
[2018-06-13] MEDS: ALBUTEROL SULFATE 2.5 MG/3 ML NPPB SCH ×2 (09:40→19:41)
[2018-06-13] MEDS ORDERED: ATOR20TA9 PO (10:35)
[2018-06-13] MEDS ORDERED: CEFA1VIA2 IV (10:35)
[2018-06-13] MEDS ORDERED: ACID1TAB7 PO (10:35)
[2018-06-13] MEDS ORDERED: CEPH-368 PO (10:35)
[2018-06-13] MEDS ORDERED: LIDOCAINE-MPF 1%, 5ML ONE (11:01)
[2018-06-13] MEDS ORDERED: ERTA1VIA4 IV (11:28)
[2018-06-13 15:58] VITALS: BP 137/63
[2018-06-13 18:44] VITALS: BP 108/70
[2018-06-13] MEDS: NORTRIPTYLINE 10 MG CAPSULE PO SCH (21:43)
[2018-06-13] MEDS: ATORVASTATIN 20 MG TABLET PO SCH (21:43)
[2018-06-14] MEDS: HYDROcodone/APAP 10/325 MG TABLET PO PRN (00:02)
[2018-06-14 01:27] VITALS: BP 157/76
[2018-06-14] MEDS: CEFAZOLIN PMX 1GM/50ML 50 ML IV SCH (05:32)
[2018-06-14 07:15] VITALS: BP 115/69
[2018-06-14] MEDS: INSULIN LISPRO 100 UNITS/ML, PEN SQ-INSULIN SCH (07:58)
[2018-06-14] MEDS: LACTOBACILLUS CHEW TABLET PO SCH (07:59)
[2018-06-14] MEDS: MULTIVITAMIN 1 TABLET PO SCH (07:59)
[2018-06-14] MEDS: DOCUSATE 100 MG CAPSULE PO PRN (07:59)
[2018-06-14] MEDS: BACLOFEN 10 MG TABLET PO SCH (07:59)
[2018-06-14] MEDS: LORATADINE 10 MG TABLET PO SCH (07:59)
[2018-06-14] MEDS: HEPARIN 5,000 UNITS/ML, 1ML SQ SCH ×2 (07:59)
[2018-06-14] MEDS: hydrOXyzine 10MG TABLET PO SCH (07:59)
[2018-06-14] MEDS: INSULIN GLARGINE 100 UNITS/ML, PEN SQ-INSULIN SCH (08:00)
[2018-06-14] MEDS: SODIUM CHLORIDE FLUSH 10ML SYR IVF SCH (08:02)
[2018-06-14] MEDS: TIMOLOL OPHTH 0.5%, 5ML EACHEYE SCH (08:03)
[2018-06-14] MEDS: predniSOLONE OPHTH SUSP 1%, 5ML LEFTEYE PRN (08:03)
[2018-06-14] MEDS: BRIMONIDINE TARTRATE OPHTH 0.15%, 5ML EACHEYE SCH (08:03)
[2018-06-14] MEDS ORDERED: CEFA1VIA2 IV (09:50)
== END 2018-06-14 11:38 | disposition home health service (06) | DRG 602 ==
LOC: ED 17:29 → EDIP 18:36 → 4EST 20:52 → 4WST 22:57
PROVIDERS: ADMIT Internal Medicine; ATTEND Internal Medicine
PROC: 0HBNXZZ Excision of Left Foot Skin, External Approach (ICD-10-PCS; principal; 2018-06-10 16:00)
PROC: 02HV33Z Insertion of Infusion Device into Superior Vena Cava, Percutaneous Approach (ICD-10-PCS; 2018-06-13)
PROC: B5181ZA Fluoroscopy of Superior Vena Cava using Low Osmolar Contrast, Guidance (ICD-10-PCS; 2018-06-13)
PROC: B548ZZA Ultrasonography of Superior Vena Cava, Guidance (ICD-10-PCS; 2018-06-13)
DX: L03.032 Cellulitis of left toe (principal); N17.0 Acute kidney failure with tubular necrosis; R78.81 Bacteremia; D80.3 Selective deficiency of immunoglobulin G [IgG] subclasses; B95.61 Methicillin susceptible Staphylococcus aureus infection as the cause of diseases classified elsewhere; E11.21 Type 2 diabetes mellitus with diabetic nephropathy; E11.319 Type 2 diabetes mellitus with unspecified diabetic retinopathy without macular edema; E11.40 Type 2 diabetes mellitus with diabetic neuropathy, unspecified; E11.65 Type 2 diabetes mellitus with hyperglycemia; J44.9 Chronic obstructive pulmonary disease, unspecified; L02.92 Furuncle, unspecified; Z79.4 Long term (current) use of insulin; Z83.3 Family history of diabetes mellitus; Z90.710 Acquired absence of both cervix and uterus; W55.03XA Scratched by cat, initial encounter; Y93.89 Activity, other specified; Y92.89 Other specified places as the place of occurrence of the external cause; Y99.8 Other external cause status; Z88.5 Allergy status to narcotic agent; Z88.8 Allergy status to other drugs, medicaments and biological substances; I95.9 Hypotension, unspecified
CPT/HCPCS: 36415; 73630; 73660; 77001; 84145; 99285; J7613; 36569; 71045; 76937; 80048; 80053; 81001; 82550; 82962; 83036; 83605; 83735; 84100; 85014; 85018; 85025; 85610; 85651; 85730; 86140; 87015; 87040; 87070; 87075; 87077; 87086; 87102; 87116; 87147; 87186; 87205; 87206; 93005; 93306; 94640; 96365; 96366; G0378; J0690; J0712; J1644; J2250; J2543; J2704; J3010; J3490; Q0162; C1751; J0360; J1815; J7030; J7040; Q0163